=== PATIENT | male | born 2005 | race Caucasian/White ===

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

== ENCOUNTER 2023-02-04 01:44 | Observation (INO) | payer OTHER ==
[2023-02-04] VITALS (12 sets, daily range): BP systolic 98–165; BP diastolic 56–97
[~2023-02-04] VITALS: Ht 172.7 cm; Wt 78.6 kg
[2023-02-04 02:14] LABS: BASOPHILS ABSOLUTE AUTO 0.05 K/mm3 (0.00-0.23); BASOPHILS PERCENT AUTO 1 % (0-2); EOSINOPHILS ABSOLUTE AUTO 0.16 K/mm3 (0.00-0.68); EOSINOPHILS PERCENT AUTO 2 % (0-6); Hematocrit 44.3 % (37.0-53.0); Hemoglobin 15.9 g/dL (13.5-17.5); IMMATURE GRAN ABSOLUTE AUTO 0.02 K/mm3 (0.00-0.10); IMMATURE GRAN PERCENT AUTO 0 % (0-1); LYMPHOCYTES ABSOLUTE AUTO 3.28 K/mm3 (0.84-5.20); LYMPHOCYTES PERCENT AUTO 36 % (21-46); MONOCYTES ABSOLUTE AUTO 0.76 K/mm3 (0.16-1.47); MONOCYTES PERCENT AUTO 8 % (4-13); Mean Corpuscular HGB 28.8 pg (26.0-34.0); Mean Corpuscular HGB Conc 35.9 g/dL (31.5-36.5); Mean Corpuscular Volume 80 fL (80-100); Mean Platelet Volume 9.8 fL (9.1-12.4); NEUTROPHILS ABSOLUTE AUTO 4.86 K/mm3 (1.96-9.15); NEUTROPHILS PERCENT AUTO 53 % (41-73); Platelet Count 295 K/mm3 (150-400); RDW Coefficient Variation 11.9 % (11.7-14.2); RDW Standard Deviation 34.3 fL (35.1-46.3); Red Blood Cell Count 5.52 M/mm3 (4.30-5.90); White Blood Cell Count 9.13 K/mm3 (4.00-11.30)
[2023-02-04] MEDS ORDERED: FLUOXETINE HCL20 M2 PO (02:18)
[2023-02-04] MEDS ORDERED: Ventolin/Prove6.7 GM INH (02:19)
[2023-02-04 02:32] LABS: Acetaminophen, Random 28.9 ug/mL (10.0-30.0); Ethanol (Alcohol), Blood, Med <3 mg/dL; Salicylate <1.7 mg/dL (2.8-20.0)
[2023-02-04 02:33] LABS: Alanine Aminotransfer (ALT/SGP 16 U/L (12-78); Albumin, Blood 4.4 g/dL (3.4-5.0); Albumin/Globulin Ratio 1.2 (0.8-1.8); Alk Phos 88 U/L (58-237); Anion Gap 5 mmol/L (6-16); Aspartate Aminotrans (AST/SGOT 13 U/L (12-37); Bilirubin, Total 0.3 mg/dL (0.1-1.0); Blood Urea Nitrogen 10 mg/dL (8-21); Bun/Creatinine Ratio 13.3 (12.0-20.0); CO2, Blood 24 mmol/L (21-32); Calcium, Blood 9.5 mg/dL (8.5-10.1); Chloride, Blood 114 mmol/L (98-108); Creatinine, Blood 0.75 mg/dL (0.60-1.20); Globulin, Blood 3.8 g/dL (2.2-4.0); Glomerular Filtration Rate 133 (60-); Glucose, Blood 113 mg/dL (70-99); Potassium, Blood 3.4 mmol/L (3.5-5.5); Sodium, Blood 143 mmol/L (136-145); Total Protein, Blood 8.2 g/dL (6.4-8.2)
[2023-02-04 05:58] LABS: U Amphetamine Screen Not Detected; U Barbituate Screen Not Detected; U Benzodiazapine Screen DETECTED; U Buprenorphine Screen Not Detected; U Cannabinoids Screen Not Detected; U Cocaine Screen Not Detected; U Methadone Screen Not Detected; U Methamphetamine Screen Not Detected; U Opiates Screen Not Detected; U Oxycodone Screen Not Detected; U Phencyclidine Screen Not Detected
--- NOTE | 2023-02-04 08:31 | NUR ---
PT ARRIVES TO ICU 11 FROM ER AT 0750. ABLE TO AMB SELF TO BED. A/O X4. DENIES SUICIDAL IDEATION OR ANY PLANS OF HARMING HIMSELF. SECOND BAG OF ACETYLCYSTEINE HANGING. NEXT LAB DRAW AT 1400. POISON CONTROL FOLLOWING PT. FAMILY AT BEDSIDE. NO SIGN OF DISTRESS.
[2023-02-04 14:42] LABS: Alanine Aminotransfer (ALT/SGP 23 U/L (12-78); Albumin, Blood 4.3 g/dL (3.4-5.0); Alk Phos 83 U/L (58-237); Anion Gap 6 mmol/L (6-16); Aspartate Aminotrans (AST/SGOT 16 U/L (12-37); Bilirubin, Total 0.6 mg/dL (0.1-1.0); Blood Urea Nitrogen 6 mg/dL (8-21); Bun/Creatinine Ratio 10.2 (12.0-20.0); CO2, Blood 23 mmol/L (21-32); Calcium, Blood 9.4 mg/dL (8.5-10.1); Chloride, Blood 111 mmol/L (98-108); Creatinine, Blood 0.59 mg/dL (0.60-1.20); Globulin, Blood 4.1 g/dL (2.2-4.0); Glomerular Filtration Rate 143 (60-); Glucose, Blood 205 mg/dL (70-99); Sodium, Blood 140 mmol/L (136-145); Total Protein, Blood 8.4 g/dL (6.4-8.2)
[2023-02-04 14:43] LABS: Acetaminophen, Random <2.0 ug/mL (10.0-30.0)
[2023-02-04 15:00] LABS: International Normalized Ratio 1.16; Prothrombin Time Results 12.1 Sec (9.7-11.5)
--- NOTE | 2023-02-04 17:14 | NUR ---
SUMMARY PT ADMITTED FROM ER THIS AM. PT DENIES SUICIDAL IDEATION ALL DAY. DENIES NAUSEA BUT POOR APPETITE. DR. MELENDREZ SAW PT AND RESTARTED HIS MEDS. LAB WORK DONE AT [address] CABALLERO AND POISON CONTROL. MONITORING PT OVERNIGHT THEN SHOULD BE ABLE TO DISCHARGE TOMORROW. AMBULATES INDEP TO BATHROOM. NO SIGN OF DISTRESS. USES CALL LIGHT APPROPRIATELY.
--- NOTE | 2023-02-04 18:34 | NUR ---
TRANSFER TRANSFERED TO MEDICAL FLOOR AT 1820HRS. HE DENIES ANY PAIN AT THIS TIME. UP INDEPENDENTLY IN HIS ROOM. BED LOW, CALL LIGHT IN REACH.
[2023-02-05 05:49] VITALS: BP 141/84
[2023-02-05 06:06] LABS: BASOPHILS ABSOLUTE AUTO 0.04 K/mm3 (0.00-0.23); BASOPHILS PERCENT AUTO 0 % (0-2); EOSINOPHILS ABSOLUTE AUTO 0.11 K/mm3 (0.00-0.68); EOSINOPHILS PERCENT AUTO 1 % (0-6); Hematocrit 41.9 % (37.0-53.0); Hemoglobin 14.5 g/dL (13.5-17.5); IMMATURE GRAN ABSOLUTE AUTO 0.03 K/mm3 (0.00-0.10); IMMATURE GRAN PERCENT AUTO 0 % (0-1); LYMPHOCYTES ABSOLUTE AUTO 3.74 K/mm3 (0.84-5.20); LYMPHOCYTES PERCENT AUTO 30 % (21-46); MONOCYTES ABSOLUTE AUTO 1.26 K/mm3 (0.16-1.47); MONOCYTES PERCENT AUTO 10 % (4-13); Mean Corpuscular HGB 28.9 pg (26.0-34.0); Mean Corpuscular HGB Conc 34.6 g/dL (31.5-36.5); Mean Corpuscular Volume 84 fL (80-100); Mean Platelet Volume 10.1 fL (9.1-12.4); NEUTROPHILS ABSOLUTE AUTO 7.25 K/mm3 (1.96-9.15); NEUTROPHILS PERCENT AUTO 58 % (41-73); Platelet Count 265 K/mm3 (150-400); RDW Coefficient Variation 12.6 % (11.7-14.2); RDW Standard Deviation 38.1 fL (35.1-46.3); Red Blood Cell Count 5.01 M/mm3 (4.30-5.90); White Blood Cell Count 12.43 K/mm3 (4.00-11.30)
[2023-02-05 06:53] LABS: Albumin, Blood 3.9 g/dL (3.4-5.0); Albumin/Globulin Ratio 1.1 (0.8-1.8); Bilirubin, Total 0.4 mg/dL (0.1-1.0); Bun/Creatinine Ratio 10.2 (12.0-20.0); Calcium, Blood 8.8 mg/dL (8.5-10.1); Creatinine, Blood 0.68 mg/dL (0.60-1.20); Globulin, Blood 3.5 g/dL (2.2-4.0); Magnesium, Blood 2.3 mg/dL (1.6-2.4); Potassium, Blood 3.6 mmol/L (3.5-5.5); Total Protein, Blood 7.4 g/dL (6.4-8.2)
--- NOTE | 2023-02-05 06:53 | NUR ---
END OF SHIFT SUMMARY PT A&O x4, VSS, AFEBRILE, PT ON RA. PT INDEPENDENT WITH ADL's, UP AD VELIA IN ROOM. PT DENIED ANY THOUGHTS OF SI, NO THOUGHTS OF HARMING OTHERS. NO C/O PAIN OR DISCOMFORT. PT COMPLIANT WITH SCHEDULED MEDICATION, TRAZODONE. PT CALM AND COOPERATIVE WITH CARE PROVIDED. PT ABLE TO MAKE NEEDS KNOWN.
[2023-02-05 08:19] VITALS: BP 126/60
[2023-02-05] MEDS ORDERED: TRAZ50 PO (08:53)
--- NOTE | 2023-02-05 11:38 | NUR ---
PT SOMNOLENT THIS MORNING. DURING MY ASSESSMENT PT STATES THAT HE IS TIRED AND WANTING TO SLEEP. DENIES CHEST PAIN AND ABDOMENAL PAIN. DENIES N/V. PT IS ABLE TO MAKE NEEDS KNOWN. INDEPENDENT IN THE ROOM.
--- NOTE | 2023-02-05 13:36 | NUR ---
PT DISCHARGED HOME. POISON CONTROL CALLED X2 TODAY. DISCHARGE INSTRUCTIONS DISCUSSED WITH PT AND FAMILY. NO QUESTIONS AT THIS TIME. EMPHASIZED IMPORTANCE OF TAKING MEDICATIONS PRESCRIBED.
== END 2023-02-05 12:54 | disposition home or self-care (01) ==
LOC: ER 01:44 → ERHOLD 01:45 → ICUE 01:45 → MEDS 18:20 → ENPENDDIS 02-05 11:15 → MEDS 02-05 12:54
PROVIDERS: Emergency Medicine; ADMIT Student in an Organized Health Care Education/Training Program
DX: T39.1X2A Poisoning by 4-Aminophenol derivatives, intentional self-harm, initial encounter (principal); E87.6 Hypokalemia; F33.9 Major depressive disorder, recurrent, unspecified
CPT/HCPCS: 36415; 80053; 83735; 85025; 85610; 93005; 93010; 94640; 94664; 94762; 96365; 96366; 96375; 96376; 99284-25; A9270; G0378; G0480; J0132; J1200; J2405; J2930; J7030; J7060; J7070